=== PATIENT | male | born 1980 | race Caucasian/White ===

== ENCOUNTER 2016-07-07 11:57 | Outpatient (CLI) | payer OTHER ==
[2015-08-14 14:29] VITALS: BP 118/94
--- NOTE | 2016-07-07 16:10 | Diagnostic Imaging Report ---
[facility] [address] [facility].[address] [address] Report Submission Date: Jul 07, 2016 3:27:22 PM CDT Patient Study Name: RUY ERICKSON Date: Jul 07, 2016 12:03:47 PM CDT Modality Type: CR Gender: M Description: SPINE : 84 Institution: [facility] Physician: PRUDENCIO DELUCA Sacrum and coccyx - three views Clinical history: Fall on metal object 2 weeks ago with persistent pain and swelling. Rule out foreign body. Findings: Examination of sacrum and coccyx in AP, angled and lateral views fails to demonstrate evidence of fracture. Sacroiliac joints are symmetric. Sacral foramina are preserved. There is no lytic or blastic lesion and no opaque foreign body. Impression: 1. Negative study. Electronically signed on Jul 07, 2016 3:27:22 PM CDT by: James LU
== END 2016-07-07 12:00 ==
LOC: RAD 11:57
PROVIDERS: ATTEND Physician Assistant
DX: T14.90 Injury, unspecified (principal); W19.XXXA Unspecified fall, initial encounter; Y93.9 Activity, unspecified; Y99.9 Unspecified external cause status
CPT/HCPCS: 72220

== ENCOUNTER 2016-09-02 08:15 | Outpatient (CLI) | payer OTHER ==
[2015-08-14 14:29] VITALS: BP 118/94
[2016-09-03 11:06] LABS: ADENOVIRUS F 40/41 Not Detected (Not Detected); ASTROVIRUS Not Detected (Not Detected); C. DIFFICILE (TOXIN A/B) Not Detected (Not Detected); CRYPTOSPORIDIUM Not Detected (Not Detected); CYCLOSPORA CAYETANENSIS Not Detected (Not Detected); ENTAMOEBA HISTOLYTICA Not Detected (Not Detected); GIARDIA LAMBLIA Not Detected (Not Detected); ROTAVIRUS A Not Detected (Not Detected); SAPOVIRUS Not Detected (Not Detected); VIBRIO CHOLERAE Not Detected (Not Detected)
== END 2016-09-02 08:16 ==
LOC: LAB 08:15
PROVIDERS: ATTEND Physician Assistant
DX: A09 Infectious gastroenteritis and colitis, unspecified (principal)
CPT/HCPCS: 87507

== ENCOUNTER 2016-09-26 09:50 | Emergency (ER) | payer OTHER ==
[2016-09-26] MEDS: 0.9 % SODIUM CHLORIDE 1,000 ML IV ONE (10:30)
[2016-09-26] MEDS: ONDANSETRON HCL/PF 4 MG/ 2ML VIAL IVP ONE (10:32)
[2016-09-26 10:37] LABS: BASOPHILS % 1.2 (0.0-1.5); EOSINOPHILS % 5.3 % (0.0-6.8); MEAN CORPUSCULAR HEMOGLOBIN 33.7 pg (28.0-34.0); MEAN CORPUSCULAR VOLUME 94.8 fl (80.0-100.0); MONOCYTES % 6.2 % (0.0-11.0); NEUTROPHILS # 5.3 # k/uL (1.4-7.7)
[2016-09-26 10:56] LABS: eGFR (African) > 60; eGFR (Non-African) > 60
[2016-09-26] MEDS: ACETAMINOPHEN 325 MG TABLET PO ONE (11:22)
[2016-09-26 11:54] LABS: APPEARANCE,URINE Clear (CLEAR); COLOR,URINE Yellow (YELLOW); OCCULT BLOOD,URINE Negative (NEGATIVE); UROBILINOGEN URINE 0.2 Eu (0.2-1.0)
--- NOTE | 2016-09-26 12:54 | ED Physician Documentation ---
General Adult - HISTORIAN Historian: patient, friend - [facility] Chief Complaint: Nausea,Vomiting,Diarrhea Additional Information: nausea headache dizzy emesisx1. 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 has been occ sick ever since Onset: days ago (2-3) Timing: worse Severity: mild, moderate - ROS CONST: recent illness, weakness EYES/ENT: none CVS/RESP: cough GI/: abdominal pain, vomiting, nausea NEURO/PSYCH: headache, dizziness - PAST HX Past History: other (gerd crohns ds mental illnesws bipolar major depression ) Surgeries/Procedures: other (appy) Allergies/Adverse Reactions: Allergies Allergy/AdvReac Type Severity Reaction Status Date / Time No Known Allergies Allergy Verified 09/26/16 12:21 Home Medications: Ambulatory Orders Medication Instructions Recorded Gabapentin 600 mg PO QID u2 07/18/15 Naltrexone HCl 50 mg PO DAILY u2 07/18/15 Oxcarbazepine [Trileptal] 300 mg PO BID u2 07/18/15 Prazosin HCl 1 mg PO HS av 07/18/15 Trazodone HCl 50 mg PO HS u2 07/18/15 Promethazine HCl [Phenergan] 12.5 mg PO Q4 PRN #12 tablet 09/26/16 - SOCIAL HX Smoking History: greater than 1 pack/day Alcohol Use: none Drug Use: none - FAMILY HX Family History: No - VITAL SIGNS Vital Signs: Vital Signs Temp Pulse Resp BP Pulse Ox 118/94 01/11/16 13:56 - REVIEWED ASSESSMENTS Nursing Assessment Reviewed: Yes Vitals Reviewed: Yes ED Results Lab/Radiology - Orders Orders: ED Orders Category Date Time Status Place IV Lock 1T Care 09/26/16 10:14 Ordered CHEST P.A.&LAT 2 VIEWS [RAD] Stat Exams 09/26/16 Ordered CBC/PLATELET/DIFF Routine Lab 09/26/16 Ordered CMP Routine Lab 09/26/16 Ordered DRUG SCREEN URINE MEDICAL ONLY Routine Lab 09/26/16 Ordered URINALYSIS Routine Lab 09/26/16 Ordered NORMAL SALINE @ 1000 MLS/HR ( 1000ml BOLUS) Med 09/26/16 10:13 Ordered 0.9 % Sodium Chloride [Normal Saline] 1,000 ml IV Q1H Ondansetron HCl/Pf [Zofran 4 mg/2 ml] Med 09/26/16 10:13 Once 4 mg IVP NOW ONE General Adult Physical Exam - PHYSICAL EXAM GENERAL APPEARANCE: moderate distress EENT: eye inspection normal NECK: normal inspection, supple. No: lymphadenopathy RESPIRATORY: no resp distress, chest non-tender, breath sounds normal CVS: reg rate & rhythm, heart sounds normal ABDOMEN: soft, tenderness (slight) BACK: normal inspection SKIN: warm/dry, normal color. No: cyanosis, diaphoresis, jaundice EXTREMITIES: non-tender, normal range of motion, no edema NEURO: oriented X3, sensation nml Discharge Clincal Impression: abd headache udo-improved Prescriptions: Promethazine HCl [Phenergan] 12.5 mg PO Q4 PRN #12 tablet PRN Reason: Nausea / Vomiting Referrals: Primary Doctor,No [Primary Care Provider] - 2 Days Home Medications: Ambulatory Orders Gabapentin 600 mg PO QID u2 07/18/15 Naltrexone HCl 50 mg PO DAILY u2 07/18/15 Oxcarbazepine [Trileptal] 300 mg PO BID u2 07/18/15 Prazosin HCl 1 mg PO HS av 07/18/15 Trazodone HCl 50 mg PO HS u2 07/18/15 Promethazine HCl [Phenergan] 12.5 mg PO Q4 PRN #12 tablet 09/26/16 Condition: Good Disposition: 01 HOME, SELF-CARE Decision to Admit: NO Decision Time: 12:53
--- NOTE | 2016-09-26 16:25 | Diagnostic Imaging Report ---
[facility] [address] [facility].[address] [address] Report Submission Date: Sep 26, 2016 11:01:02 AM CDT Patient Study Name: RUY ERICKSON Date: Sep 26, 2016 10:42:53 AM CDT Modality Type: CR Gender: M Description: CHEST : 84 Institution: [facility] Physician: PATTI EDWARDS - ER Examination: PA and lateral chest. History: Evaluate lung trevizo. Findings: PA lateral chest demonstrate a normal cardiac and mediastinal silhouette. No focal infiltrate. No effusion. No blunting of the costophrenic margins. Scattered granulomas. Osseous structures are appropriate for age. Impression: No acute process. Electronically signed on Sep 26, 2016 11:01:02 AM CDT by: Rocky LU
[2016-09-26 19:56] VITALS: BP 127/77
== END 2016-09-26 13:24 | disposition home or self-care (01) ==
LOC: ED 09:50
DX: R51 Headache (principal)
CPT/HCPCS: 71020; 80053; 80377; 81002; 85025; J2405; J7030; 96361; 96374; 99283; G0481; S1016

== ENCOUNTER 2016-10-12 11:33 | Outpatient (CLI) | payer OTHER ==
--- NOTE | 2016-10-12 15:02 | Diagnostic Imaging Report ---
JENY SIMMS (SUBSEA ENGINEER) - OP [facility] [address] [address] Report Submission Date: Oct 12, 2016 12:19:02 PM CDT Patient Study Name: RUY ERICKSON Date: Oct 12, 2016 11:55:03 AM CDT Modality Type: CR Gender: M Description: SPINE : 84 Institution: [facility] Physician: JENY SIMMS (SUBSEA ENGINEER) - OP Examination: Plain film lumbar spine History: Back discomfort. Findings: 3 views of the lumbar spine demonstrate normal height. No anterior compression. No soft tissue abnormalities. Impression: No compression deformity. If patient experiencing neurologic symptoms, consider obtaining MRI. Electronically signed on Oct 12, 2016 12:19:02 PM CDT by: Rocky LU
--- NOTE | 2016-10-12 15:03 | Diagnostic Imaging Report ---
JENY SIMMS (LACE AND TEXTILES RESTORER) - OP [facility] [address] [facility].[address] [address] Report Submission Date: Oct 12, 2016 12:17:57 PM CDT Patient Study Name: RUY ERICKSON Date: Oct 12, 2016 11:49:36 AM CDT Modality Type: CR Gender: M Description: PELVIS : 84 Institution: [facility] Physician: JENY SIMMS (LACE AND TEXTILES RESTORER) - OP Examination: Plain film pelvis/hip History: Hip discomfort Comparison exams: None provided Findings: 3 views of the pelvis and hip demonstrate normal cortical margins. No fracture no dislocation. No soft tissue abnormality. Impression: No osseous abnormality. Electronically signed on Oct 12, 2016 12:17:57 PM CDT by: Rocky LU
--- NOTE | 2016-10-12 15:03 | Diagnostic Imaging Report ---
JENY SIMMS (COMMUNITY MENTAL HEALTH WORKER) - OP [facility] [address] [address] Report Submission Date: Oct 12, 2016 12:16:37 PM CDT Patient Study Name: RUY ERICKSON Date: Oct 12, 2016 11:42:59 AM CDT Modality Type: CR Gender: M Description: SHOULDER : 84 Institution: [facility] Physician: JENY SIMMS (COMMUNITY MENTAL HEALTH WORKER) - OP Examination: Plain film shoulder History: Discomfort Comparison exams: None provided Findings: 2 views of the shoulder demonstrate normal cortical margins. No evidence for fracture or dislocation. No soft tissue abnormality Impression: No acute osseous process. Suspect soft tissue abnormality consider obtaining MRI. Electronically signed on Oct 12, 2016 12:16:37 PM CDT by: Rocky LU
== END 2016-10-12 11:34 ==
LOC: RAD 11:33
PROVIDERS: ATTEND Nurse Practitioner Family
DX: M54.5 Low back pain (principal); M25.552 Pain in left hip; M25.512 Pain in left shoulder
CPT/HCPCS: 72100; 73030

== ENCOUNTER 2016-10-28 21:19 | Emergency (ER) | payer OTHER ==
[2016-10-28 21:43] VITALS: BP 115/72
--- NOTE | 2016-10-28 21:52 | ED Physician Documentation ---
Upper Extremity Injury - HISTORIAN Historian: patient - HPI Stated Complaint: right elbow pain Chief Complaint: Upper Extremity Injury Additional Information: Slipped on wet shower, hit elbow on shower floor. Onset: just prior to arrival - ROS CONST: no problems - PAST HX Past History: none Allergies/Adverse Reactions: Allergies Allergy/AdvReac Type Severity Reaction Status Date / Time No Known Allergies Allergy Verified 10/28/16 21:32 Home Medications: Ambulatory Orders Medication Instructions Recorded Gabapentin 600 mg PO QID 07/18/15 Naltrexone HCl 50 mg PO DAILY 07/18/15 Oxcarbazepine [Trileptal] 300 mg PO BID u2 07/18/15 Prazosin HCl 1 mg PO HS 07/18/15 Trazodone HCl 50 mg PO HS 07/18/15 - SOCIAL HX Smoking History: non-smoker - FAMILY HX Family History: no significant history - VITAL SIGNS Vital Signs: Vital Signs Temp Pulse Resp BP Pulse Ox 97.6 F 85 16 115/72 95 10/28/16 21:20 10/28/16 21:20 10/28/16 21:20 10/28/16 21:20 10/28/16 21:20 - REVIEWED ASSESSMENTS Nursing Assessment Reviewed: Yes Vitals Reviewed: Yes ED Results Lab/Radiology - Orders Orders: ED Orders Category Date Time Status ELBOW 3 VIEWS [RAD] Stat Exams 10/28/16 Taken Upper Extremity Injury Physic - Physical Exam General Appearance: alert, mild distress Hand: normal inspection, no evidence of injury, normal ROM Wrist: normal inspection, no evidence of injury, normal ROM Elbow/Forearm: soft tissue tenderness (superficial abrasions) Shoulder: normal inspection, no evidence of injury, normal ROM Neuro/Vascular/Tendon: no vascular compromise (right radial pulse 2+), motor nml , sensation nml Skin: warm,dry Head/ENT: nml inspection Neck/Back: nml inspection Resp/CVS: no resp. distress Abdomen: pelvis stable Discharge Clincal Impression: Contusion of right elbow Referrals: Jahaira Elizabeth PRN [Primary Care Provider] - 2 Days Additional Instructions: Ice to the sore area for 30 minutes of each hour you are awake for 3-4 days. You can also take Tylenol or ibuprofen if needed for discomfort. Home Medications: Ambulatory Orders Gabapentin 600 mg PO QID 07/18/15 Naltrexone HCl 50 mg PO DAILY 07/18/15 Oxcarbazepine [Trileptal] 300 mg PO BID u2 07/18/15 Prazosin HCl 1 mg PO HS av 07/18/15 Trazodone HCl 50 mg PO HS u2 07/18/15 Condition: Good Disposition: 01 HOME, SELF-CARE Decision to Admit: NO Decision Time: 21:57
--- NOTE | 2016-10-28 21:58 | Diagnostic Imaging Report ---
NUNO WILHELM [facility] [address] [facility] [address] [address] Report Submission Date: Oct 28, 2016 9:48:18 PM CDT Patient Study Name: RUY ERICKSON Date: Oct 28, 2016 9:31:41 PM CDT Modality Type: CR Gender: M Description: UPPER EXTREMITY : 84 Institution: [facility] Physician: NUNO WILHELM Left elbow, AP and lateral History: Fall, injury, pain Findings: The osseous, joint and soft tissue structures are normal. Impression: Normal. Electronically signed on Oct 28, 2016 9:48:18 PM CDT by: Tim LU
== END 2016-10-28 21:55 | disposition home or self-care (01) ==
LOC: ED 21:19
DX: S50.01XA Contusion of right elbow, initial encounter (principal); X58.XXXA Exposure to other specified factors, initial encounter; Y93.9 Activity, unspecified; Y99.9 Unspecified external cause status
CPT/HCPCS: 73080; 99283

== ENCOUNTER 2017-01-12 11:19 | Emergency (ER) | payer OTHER ==
--- NOTE | 2017-01-12 11:51 | ED Physician Documentation ---
General Adult - HISTORIAN Historian: patient - HPI Stated Complaint: food in throat Chief Complaint: General Adult Further Comments: yes (36 year old male patient presents with complaints of sore throat and mouth pain. States he was recently seen in the ER last week for "steak caught in my throat".) - ROS CONST: no problems EYES/ENT: none CVS/RESP: none GI/: none MS/SKIN/LYMPH: none NEURO/PSYCH: denies: headache - PAST HX Past History: other (bipolar) Allergies/Adverse Reactions: Allergies Allergy/AdvReac Type Severity Reaction Status Date / Time No Known Allergies Allergy Verified 01/12/17 11:36 Home Medications: Ambulatory Orders Medication Instructions Recorded Gabapentin 600 mg PO QID u2 07/18/15 Naltrexone HCl 50 mg PO DAILY u2 07/18/15 Oxcarbazepine [Trileptal] 300 mg PO BID u2 07/18/15 Prazosin HCl 1 mg PO HS av 07/18/15 Trazodone HCl 50 mg PO HS u2 07/18/15 Nystatin 500,000 Unit/5 ml Udc 5 ml PO QID #150 ml 01/12/17 [Nilstat] - SOCIAL HX Smoking History: cigarettes - FAMILY HX Family History: No - VITAL SIGNS Vital Signs: Vital Signs Temp Pulse Resp BP Pulse Ox 98.5 F 75 16 136/82 97 01/12/17 11:20 01/12/17 11:20 01/12/17 11:20 01/12/17 11:20 01/12/17 11:20 - REVIEWED ASSESSMENTS Nursing Assessment Reviewed: Yes Vitals Reviewed: Yes General Adult Physical Exam - PHYSICAL EXAM GENERAL APPEARANCE: [id number] N EENT: eye inspection normal, DENISSE, other (white coating on mouth and tongue). No: pharyngeal erythema RESPIRATORY: no resp distress, chest non-tender, breath sounds normal CVS: reg rate & rhythm, heart sounds normal, equal pulses, no murmur, no gallop , PMI nml, no JVD, no friction rub, 24 ABDOMEN: soft, no organomegaly, normal bowel sounds, no abdominal bruit, no distension SKIN: normal color, warm/dry, NR, INT, PAL, DR NEURO: oriented X3, CN's nml as tested, motor nml, sensation nml, mood/affect nml Discharge Clincal Impression: Candidiasis of mouth Prescriptions: Nystatin 500,000 Unit/5 ml Udc [Nilstat] 5 ml PO QID #150 ml Referrals: Jahaira Elizabeth, PRN [Primary Care Provider] - 2 Days Condition: Stable Disposition: 01 HOME, SELF-CARE Decision to Admit: NO Decision Time: 11:51
[2017-01-12 12:07] VITALS: BP 136/78
== END 2017-01-12 12:00 | disposition home or self-care (01) ==
LOC: ED 11:19
DX: B37.0 Candidal stomatitis (principal)
CPT/HCPCS: 99283

== ENCOUNTER 2017-04-09 08:35 | Emergency (ER) | payer OTHER ==
[2017-04-09 09:24] VITALS: BP 142/77
--- NOTE | 2017-04-09 09:24 | ED Physician Documentation ---
Upper Respiratory Symptoms - HISTORIAN Historian: patient, parent - HPI Stated Complaint: cough, fever Chief Complaint: Upper Respiratory Symptoms Additional Information: cough cold off and on since -still smokes 2 pld. occ lo gr fever no flu vacc b/k=ok e/s ok xc cough-needs work excuse' Duration: intermittent episodes Context: denies: recent foreign travel, insect bite(s) Severity: mild, moderate Associated Symptoms: denies: productive cough, shortness of breath Worsened by Deep Breath: Yes - ROS CONST/EYES: weakness (mild ) LYMPH: denies: rash, swollen glands GI/: none NEURO/PSYCH: other (bipolar) MS/SKIN: denies: joint pain, muscle aches, rash - PAST HX Lung Disease: none (no spec dx but smokes 2ppd) PE Risk Factors: none Surgeries/Procedures: appendectomy Immunizations: denies: influenza, UTD Allergies/Adverse Reactions: Allergies Allergy/AdvReac Type Severity Reaction Status Date / Time No Known Allergies Allergy Verified 04/09/17 08:52 Home Medications: Ambulatory Orders Medication Instructions Recorded Gabapentin 600 mg PO QID 07/18/15 Naltrexone HCl 50 mg PO DAILY 07/18/15 Oxcarbazepine [Trileptal] 300 mg PO BID 07/18/15 Prazosin HCl 1 mg PO HS 07/18/15 Trazodone HCl 50 mg PO HS 07/18/15 - SOCIAL HX Smoking History: greater than 1 pack/day Alcohol Use: none Drug Use: none - FAMILY HX Family History: no significant history - VITAL SIGNS Vital Signs: Vital Signs Temp Pulse Resp BP Pulse Ox 98.0 F 67 19 143/100 97 04/09/17 08:54 04/09/17 08:54 04/09/17 08:54 04/09/17 08:54 04/09/17 08:54 - REVIEWED ASSESSMENTS Nursing Assessment Reviewed: Yes ED Results Lab/Radiology - Lab Results Lab Results: flu titers neg Upper Respiratory Symptoms - EXAM General Appearance: mild distress EENT: eyes nml inspection. No: loss of TM landmarks (R), loss of TM landmarks ( L), pharyngeal erythema Neck: normal inspection. No: lymphadenopathy, carotid bruit Respiratory: speaks full sentences, wheezes, no pleuritic chest pain. No: resp. fatigue Abdomen: non-tender CVS: reg rate & rhythm, heart sounds normal Skin: color nml, no rash, warm,dry. No: cyanosis, diaphoresis, pallor Extremities: non-tender, normal range of motion Neuro/Psych: oriented x3 Discharge Clincal Impression: viral resp infection, nicotine abuse Referrals: Jahaira Elizabeth PRN [Primary Care Provider] - 2 Days Comments: wants work excuse Condition: Good Disposition: 01 HOME, SELF-CARE Decision to Admit: NO Decision Time: 09:29
== END 2017-04-09 09:23 | disposition home or self-care (01) ==
LOC: ED 08:35
DX: B34.9 Viral infection, unspecified (principal); F17.210 Nicotine dependence, cigarettes, uncomplicated
CPT/HCPCS: 87400; 99282

== ENCOUNTER 2017-07-15 10:29 | Emergency (ER) | payer OTHER ==
[2017-07-15 10:52] VITALS: BP 147/92
--- NOTE | 2017-07-15 11:03 | ED Physician Documentation ---
Upper Respiratory Symptoms - HISTORIAN Historian: patient - HPI Stated Complaint: cough, runny nose Chief Complaint: Cough/ Upper Respiratory Additional Information: x 1 week Onset: days ago (7) Duration: sudden-Onset Context: denies: recent foreign travel, insect bite(s), tick(s), recent chemotherapy, multiple patients, same sx Severity: moderate Associated Symptoms: fever, sore throat, productive cough Worsened by Deep Breath: Yes - ROS CONST/EYES: denies: weakness, eye redness, eye itching CVS/RESP: other (green prod. cough) LYMPH: denies: leg swelling, rash, swollen glands, ankle swelling GI/: none NEURO/PSYCH: denies: fainting, dizziness, confusion, anxiety, depression MS/SKIN: denies: joint pain, muscle aches, rash - PAST HX Lung Disease: asthma, COPD Other History: other (gerd, ibs) Surgeries/Procedures: appendectomy Immunizations: referred to PCP Allergies/Adverse Reactions: Allergies Allergy/AdvReac Type Severity Reaction Status Date / Time No Known Allergies Allergy Verified 07/15/17 10:40 Home Medications: Ambulatory Orders Medication Instructions Recorded Gabapentin 600 mg PO QID u2 07/18/15 Trazodone HCl 50 mg PO HS u2 07/18/15 Dexlansoprazole [Dexilant] 60 mg PO DAILY 07/15/17 Dicyclomine HCl [Bentyl] 20 mg PO Q6 PRN 07/15/17 Montelukast Sodium [Singulair] 10 mg PO DAILY 07/15/17 Omeprazole [Prilosec] 40 mg PO TID 07/15/17 Ranitidine HCl [Ranitidine HCl] 150 mg PO BID 07/15/17 - SOCIAL HX Smoking History: cigarettes Alcohol Use: occasionally Drug Use: none - FAMILY HX Family History: no significant history - VITAL SIGNS Vital Signs: Vital Signs Temp Pulse Resp BP Pulse Ox 98.6 F 68 18 147/92 98 07/15/17 10:45 07/15/17 10:45 07/15/17 10:45 07/15/17 10:45 07/15/17 10:45 - REVIEWED ASSESSMENTS Nursing Assessment Reviewed: Yes Vitals Reviewed: Yes Progress - Results/Orders Results/Orders: no testing ordered - Progress Progress: Pt. stable entire time in er Critical Care Note - Critical Care Note Total Time (mins): 0 ED Results Lab/Radiology - Lab Results Lab Results: none ordered - Radiology Radiology Impressions: none taken Upper Respiratory Symptoms - EXAM General Appearance: alert, mild distress EENT: eyes nml inspection, TM dullness (R), TM dullness (L), rhinorrhea, pharyngeal erythema, other (tenderness over frontal, ethmoid and maxillary sinuses) Neck: normal inspection, thyroid normal, supple Respiratory: no resp. distress, breath sounds nml. No: wheezes, rales, rhonchi , stridor Abdomen: non-tender, no organomegaly, nml bowel sounds CVS: reg rate & rhythm, heart sounds normal, equal pulses, no murmur Skin: color nml, no rash, warm,dry Extremities: non-tender, normal range of motion, no evidence of injury, no edema Neuro/Psych: oriented x3, neuro intact, mood/affect nml Discharge Clincal Impression: Upper respiratory tract infection Qualifiers: URI type: unspecified URI Qualified Code(s): J06.9 - Acute upper respiratory infection, unspecified Referrals: Jahaira Elizabeth, PRN [Primary Care Provider] - 2 Days Comments: Discharged in stable condition to care of family with script for Keflex 500 mg 2 p.o. bid x 10 days. Condition: Stable Disposition: 01 HOME, SELF-CARE Decision to Admit: NO Decision Time: 11:03
== END 2017-07-15 11:07 | disposition home or self-care (01) ==
LOC: ED 10:29
DX: J06.9 Acute upper respiratory infection, unspecified (principal)
CPT/HCPCS: 99282

== ENCOUNTER 2017-12-26 13:13 | Emergency (ER) | payer OTHER ==
[2017-12-26] MEDS ORDERED: 0.9 % SODIUM CHLORIDE 1,000 ML IV ONE (13:37)
[2017-12-26] MEDS ORDERED: ONDANSETRON HCL/PF 4 MG/ 2ML VIAL IVP ONE (13:38)
[2017-12-26 14:29] LABS: eGFR (Non-African) > 60
--- NOTE | 2017-12-26 14:38 | ED Physician Documentation ---
General Adult - HISTORIAN Historian: patient - HPI Stated Complaint: Abd pain Chief Complaint: General Adult Onset: hours Timing: still present Severity: moderate Further Comments: yes (Pt is a 37 yo male with hx IBS who has had loose and watery stools and lower abd pain x 1 day. Pt has had some nausea but no vomiting. Pt has hx appendectomy with complication and exploratory open abd surgery when he was a teenager. Pt also has hx diverticulitis. No uti sx. No hematuria.) - ROS CONST: no problems EYES/ENT: none CVS/RESP: none GI/: abdominal pain MS/SKIN/LYMPH: none - PAST HX Past History: other (GERD, Appendectomy with complications and exploratory abd surgery as teenager, IBS, Diverticulitis.) Allergies/Adverse Reactions: Allergies Allergy/AdvReac Type Severity Reaction Status Date / Time No Known Allergies Allergy Verified 12/26/17 13:44 Home Medications: Ambulatory Orders Medication Instructions Recorded Gabapentin 600 mg PO QID u2 07/18/15 Trazodone HCl 50 mg PO HS u2 07/18/15 Dicyclomine HCl [Bentyl] 20 mg PO Q6 PRN 07/15/17 Montelukast Sodium [Singulair] 10 mg PO DAILY 07/15/17 Omeprazole [Prilosec] 40 mg PO TID 07/15/17 - SOCIAL HX Smoking History: cigarettes Drug Use: marijuana - FAMILY HX Family History: No - VITAL SIGNS Vital Signs: Vital Signs Temp Pulse Resp BP Pulse Ox 98.5 F 70 21 132/91 98 12/26/17 13:33 12/26/17 13:33 12/26/17 13:33 12/26/17 13:33 12/26/17 13:33 - REVIEWED ASSESSMENTS Nursing Assessment Reviewed: Yes Vitals Reviewed: Yes Progress - Progress Progress: NS 1 L IVF Zofran 4 mg IV Abd x-ray: 2 views obtained of the abdomen. No abnormal dilation of the large or small bowel. Air and stool throughout the large bowel. No suspicious calcification projecting over the renal fossa or the lower pelvic region. Osseous structures are appropriate for age. Impression: No obstruction. No suspicious calcifications by plain film sensitivity. u/a - neg possible early diverticulitis (hx diverticulitis) Rx Cipro 500 mg po q 12 h x 7 10 days. Rx Metronidazole 500 mg q 8 h x 7 -10 days. ED Results Lab/Radiology - Lab Results Lab Results: Lab Results 12/26/17 12/26/17 13:48 13:48 Sodium 135 mmol/L L mmol/L (136-145) Potassium 3.9 mmol/L mmol/L (3.5-5.1) Chloride 103 mmol/L mmol/L (98-107) Carbon Dioxide 24 mmol/L mmol/L (22-30) BUN 10 mg/dL mg/dL (9-20) Creatinine 0.70 mg/dL mg/dL (0.66-1.25) Estimated Creat Clear 193 Est GFR ( Amer) > 60 (60 - ) Est GFR (Non-Af Amer) > 60 (60 - ) Glucose 89 mg/dL mg/dL (74-106) Calcium 8.7 mg/dL mg/dL (8.4-10.2) Total Bilirubin 0.4 mg/dL mg/dL (0.2-1.3) AST 17 U/L U/L (15-46) ALT 24 U/L U/L (13-69) Alkaline Phosphatase 76 U/L U/L (38-126) Total Protein 7.0 g/dL g/dL (6.3-8.2) Albumin 4.1 g/dL g/dL (3.5-5.0) Lipase 23 U/L U/L (23-300) - Orders Orders: ED Orders Category Date Time Status Place IV Lock 1T Care 12/26/17 13:36 Active ABDOMEN 1VIEW [RAD] Stat Exams 12/26/17 Taken CBC REF Routine Lab 12/26/17 13:48 Received CMP [CMP] Routine Lab 12/26/17 13:48 Completed LIPASE Stat Lab 12/26/17 13:48 Completed UA [URINALYSIS] Routine Lab 12/26/17 13:48 Received 0.9 % Sodium Chloride [Normal Saline] 1,000 ml Med 12/26/17 13:37 Discontinued IV Q1H Ondansetron HCl/Pf [Zofran 4 mg/2 ml] Med 12/26/17 13:38 Discontinued 4 mg IVP NOW ONE General Adult Physical Exam - PHYSICAL EXAM GENERAL APPEARANCE: moderate distress EENT: pharynx normal NECK: normal inspection, supple RESPIRATORY: no resp distress, chest non-tender, breath sounds normal CVS: reg rate & rhythm, heart sounds normal, equal pulses ABDOMEN: soft, normal bowel sounds, tenderness (lower abd tenderness) BACK: normal inspection, no CVA tenderness SKIN: warm/dry, normal color EXTREMITIES: non-tender, normal range of motion, no evidence of injury NEURO: oriented X3, motor nml, sensation nml Discharge Clincal Impression: lower abd pain, Hx of diverticulitis of colon, Hx of irritable bowel syndrome Referrals: Jahaira Elizabeth, PRN [Primary Care Provider] - Condition: Stable Disposition: 01 HOME, SELF-CARE Decision to Admit: NO Decision Time: 15:43
[2017-12-26 15:31] LABS: BASO % 0.8 % (0.0-1.5); EOS % 3.3 % (0.0-6.8); LYMPH ABS # 1.91 thou/uL (0.60-4.00); MCH. 32.8 pg (28.0-34.0); MCV 95.2 fL (80.0-100.0); MONOCYTE % 7.9 % (0.0-11.0); MONOCYTE ABS # 0.68 thou/uL (0.00-0.90); PLATELET COUNT 272 thou/uL (130-400)
[2017-12-26 16:22] VITALS: BP 122/74
--- NOTE | 2017-12-26 16:45 | Diagnostic Imaging Report ---
NATHAN CHAVES [facility] [address] [facility] [address] [address] Report Submission Date: Dec 26, 2017 2:30:05 PM CDT Patient Study Name: RUY ERICKSON Date: Dec 26, 2017 2:00:00 PM CDT Modality Type: DX Gender: M Description: ABDOMEN : 84 Institution: [facility] Physician: NATHAN CHAVES Examination: Obstruction series History: PT STATES STOMACH PAIN X 1 DAY. PT STATES APPENDIX REMOVED X 20 YEARS AGO. (Hx) Findings: 2 views obtained of the abdomen. No abnormal dilation of the large or small bowel. Air and stool throughout the large bowel. No suspicious calcification projecting over the renal fossa or the lower pelvic region. Osseous structures are appropriate for age. Impression: No obstruction. No suspicious calcifications by plain film sensitivity. Electronically signed on Dec 26, 2017 2:30:05 PM CDT by: Rocky LU
[2017-12-26 17:34] LABS: APPEARANCE,URINE CLEAR (CLEAR); COLOR,URINE YELLOW (YELLOW); OCCULT BLOOD,URINE NEGATIVE (NEGATIVE); UROBILINOGEN URINE 0.2 Eu (0.2-1.0)
== END 2017-12-26 15:59 | disposition home or self-care (01) ==
LOC: ED 13:13
DX: R10.30 Lower abdominal pain, unspecified (principal); Z87.19 Personal history of other diseases of the digestive system
CPT/HCPCS: 74018; 80053; 81002; 83690; 85025; J2405; J7030; 96365; 96375; 99284; S1016

== ENCOUNTER 2018-04-11 06:48 | Emergency (ER) | payer OTHER ==
[2018-04-11 07:07] VITALS: BP 165/105
--- NOTE | 2018-04-11 07:36 | ED Physician Documentation ---
Fall - HISTORIAN Historian: patient, spouse - HPI Stated Complaint: R wrist/hand pain Chief Complaint: Upper Extremity Injury Additional Information: fell on ice yest am w/pain in rt wrist hand-pain progressive Onset: yesterday Where: home Context: slipped r: moderate Associated Symptoms:: no loss of consciousness Location of Pain/Injury: upper extremity Injury to Right Extremity: wrist, hand Injury to Left Extremity: none - ROS CONST: no problems NEURO: denies: dizziness, anxiety, depression MS/SKIN/LYMPH: weakness. denies: numbness, neck pain, back pain EYES/ENT: denies: problems with vision CVS/RESP: none GI/: denies: problems urinating, nausea, vomiting - PAST HX Past History: other (anxiety depression gerd) Allergies/Adverse Reactions: Allergies Allergy/AdvReac Type Severity Reaction Status Date / Time No Known Drug Allergies Allergy Verified 04/11/18 07:07 Home Medications: Ambulatory Orders Medication Instructions Recorded Gabapentin 600 mg PO QID u2 07/18/15 Omeprazole [Prilosec] 40 mg PO TID 07/15/17 Amitriptyline HCl [Elavil] 1 tab PO DAILY 04/11/18 - SOCIAL HX Smoking History: cigarettes Alcohol Use: rarely Drug Use: none - FAMILY HX Family History: no significant history - VITAL SIGNS Vital Signs: Vital Signs Temp Pulse Resp BP Pulse Ox 74 16 165/105 98 04/11/18 06:55 04/11/18 06:55 04/11/18 06:55 04/11/18 06:55 - REVIEWED ASSESSMENTS Nursing Assessment Reviewed: Yes Vitals Reviewed: Yes ED Results Lab/Radiology - Orders Orders: ED Orders Category Date Time Status XR HAND [HAND 3 VIEWS OR MORE] [RAD] Stat Exams 04/11/18 Taken Fall Physical Exam - Physical Exam General Appearance: mild distress Head: non-tender Neck: non-tender Eye: DENISSE, EOMI ENT: nml external inspection Resp/CVS: chest non-tender, breath sounds nml, no resp. distress, heart sounds nml Abdomen: soft, non-tender, other (surgical hernia) Neuro: oriented x3, sensation nml, motor nml, mood/affect nml Skin: color nml, no rash, other (cap refill less 1 sec). No: cyanosis, diaphoresis, pallor Back: normal inspection Joint: Nml gait/weight bearing - Zach Coma Score Eyes Open: Spontaneous Speech: Oriented Motor: Obeys Commands Discharge Clincal Impression: sprain contusion, old healed boxer fracture Referrals: Jahaira Elizabeth PRN [Primary Care Provider] - 2 Days Condition: Good Disposition: 01 HOME, SELF-CARE Decision to Admit: NO Decision Time: 10:16
--- NOTE | 2018-04-11 10:04 | Diagnostic Imaging Report ---
PATTI EDWARDS [facility] [address] [facility] [address] 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 Physician: PATTI EDWARDS Examination: Plain film right hand History: RT HAND AND THUMB PAIN POST FALL ON ICE TODAY. (Hx) Comparison exams: None available Findings: 3 views of the right hand demonstrate normal cortical margins. Old fracture deformity of 5th metacarpal. No acute fracture. No dislocation. No soft tissue abnormality. Impression: Old/healed 5th metacarpal fracture. 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
== END 2018-04-11 08:20 | disposition home or self-care (01) ==
LOC: ED 06:48
DX: S63.501A Unspecified sprain of right wrist, initial encounter (principal); S60.211A Contusion of right wrist, initial encounter; W00.9XXA Unspecified fall due to ice and snow, initial encounter; Y93.9 Activity, unspecified; Y92.009 Unspecified place in unspecified non-institutional (private) residence as the place of occurrence of the external cause
CPT/HCPCS: 29125; 73130; 99282; 99283

== ENCOUNTER 2018-06-21 09:03 | Emergency (ER) | payer OTHER ==
[2018-06-21 09:40] LABS: BASOPHILS % 2.8 (0.0-1.5); EOSINOPHILS % 2.6 % (0.0-6.8); MONOCYTES % 7.1 % (0.0-11.0); NEUTROPHILS # 6.8 # k/uL (1.4-7.7)
[2018-06-21] MEDS: IPRATROPIUM/ALBUTEROL SULFATE 3 ML AMPUL.NEB NEB ONE (09:41)
--- NOTE | 2018-06-21 09:52 | ED Physician Documentation ---
Upper Respiratory Symptoms - HISTORIAN Historian: patient - HPI Stated Complaint: cough/congestion/syncope Chief Complaint: Cough/ Upper Respiratory Additional Information: Patient presents to ED with a 2 year history of cough. Patient reports worsening cough over the past 2 months. His main concern is he thinks he is having seizures after he has a coughing fit. Patient reports on 2 occasions he has coughed so hard he saw spots and then had some jerking motions with he arms. He remembers the entire episodes and did not have loss of bowel or bladder, nor did he have any post-ictal type symptoms. He was told by his PCP to come to the ER and be checked out. Onset: other (2 years) Duration: intermittent episodes Context: other (smokes 2 packs of cigarettes per day) Severity: moderate Associated Symptoms: productive cough, shortness of breath Worsened by Deep Breath: No Further Comments: no - ROS CONST/EYES: denies: weakness CVS/RESP: shortness of breath. denies: chest pain LYMPH: denies: leg swelling GI/: denies: vomiting, nausea NEURO/PSYCH: dizziness. denies: fainting MS/SKIN: denies: muscle aches - PAST HX Lung Disease: COPD PE Risk Factors: none Other History: other (psych) Surgeries/Procedures: none Allergies/Adverse Reactions: Allergies Allergy/AdvReac Type Severity Reaction Status Date / Time No Known Drug Allergies Allergy Verified 06/21/18 09:20 Home Medications: Ambulatory Orders Medication Instructions Recorded Gabapentin 600 mg PO QID u2 07/18/15 Omeprazole [Prilosec] 40 mg PO TID 07/15/17 Amitriptyline HCl [Elavil] 1 tab PO DAILY 04/11/18 Azithromycin 250 mg PO DIRECTED #5 tablet 06/21/18 predniSONE [Deltasone] 10 mg PO DIRECTED #21 tablet 06/21/18 - SOCIAL HX Smoking History: cigarettes, greater than 1 pack/day Alcohol Use: none Drug Use: none - FAMILY HX Family History: none - VITAL SIGNS Vital Signs: Vital Signs Temp Pulse Resp BP Pulse Ox 71 20 155/86 99 06/21/18 09:04 06/21/18 09:04 06/21/18 09:04 06/21/18 09:04 - REVIEWED ASSESSMENTS Nursing Assessment Reviewed: Yes Vitals Reviewed: Yes ED Results Lab/Radiology - Lab Results Lab Results: Lab Results 06/21/18 06/21/18 Unknown Unknown WBC 10.50 K/ul K/ul (4.00-12.00) RBC 4.85 M/ul M/ul (3.90-5.20) Hgb 16.0 g/dL g/dL (12.0-18.0) Hct 48.4 % % (37.0-53.0) MCV 100.0 fl fl (80.0-100.0) MCH 33.0 pg pg (28.0-34.0) MCHC 33.1 g/dL g/dL (30.0-36.0) RDW 12.2 % % (11.3-14.3) Plt Count 249 K/mm3 K/mm3 (130-400) Neut % (Auto) 65.1 % % (39.0-79.0) Lymph % (Auto) 22.4 % % (16.0-50.0) [place] % (Auto) 7.1 % % (0.0-11.0) Eos % (Auto) 2.6 % % (0.0-6.8) Baso % (Auto) 2.8 H (0.0-1.5) Neut # (Auto) 6.8 # k/uL # k/uL (1.4-7.7) Lymph # (Auto) 2.3 # k/uL # k/uL (0.6-4.0) [place] # (Auto) 0.7 # k/uL # k/uL (0.0-0.9) Eos # (Auto) 0.3 # k/uL # k/uL (0.0-0.6) Baso # (Auto) 0.3 # k/uL # k/uL (0.0-0.5) Sodium 138 mmol/L mmol/L (136-145) Potassium 3.6 mmol/L mmol/L (3.5-5.1) Chloride 105 mmol/L mmol/L (98-107) Carbon Dioxide 21 mmol/L L mmol/L (22-30) BUN 11 mg/dL mg/dL (9-20) Creatinine 0.70 mg/dL mg/dL (0.66-1.25) Estimated Creat Clear 232 Est GFR ( Amer) > 60 (60 - ) Est GFR (Non-Af Amer) > 60 (60 - ) Glucose 128 mg/dL H mg/dL (74-106) Calcium 9.2 mg/dL mg/dL (8.4-10.2) Total Bilirubin 0.5 mg/dL mg/dL (0.2-1.3) AST 31 U/L U/L (15-46) ALT 10 U/L L U/L (13-69) Alkaline Phosphatase 74 U/L U/L (38-126) Total Protein 7.7 g/dL g/dL (6.3-8.2) Albumin 4.2 g/dL g/dL (3.5-5.0) - Radiology Radiology Impressions: Report Submission Date: Jun 21, 2018 10:21:50 AM CDT Patient Study Name: RUY ERICKSON Date: Jun 21, 2018 9:31:12 AM CDT Modality Type: DX Gender: M Description: CHEST 2VIEW : 84 Institution: [facility] Physician: AMIRAH AGUILAR Examination: PA and lateral chest. History: Evaluate lung trevizo. Comparison exam: 03 January 2017 Findings: PA and lateral views of the chest demonstrates a normal cardiac and mediastinal silhouette. No focal infiltrate. No blunting of the costophrenic margins. Scattered stable granuloma. Osseous structures are appropriate for age. Impression: No acute pulmonary process. Electronically signed on Jun 21, 2018 10:21:50 AM CDT by: Rocky Up - Orders Orders: ED Orders Category Date Time Status CHEST 2VIEW [RAD] Stat Exams 06/21/18 Ordered CBC/PLATELET/DIFF Routine Lab 06/21/18 Completed CMP Routine Lab 06/21/18 Completed INFLUENZA A&B Stat Lab 06/21/18 09:33 Ordered Ipratropium/Albuterol Sulfate [Duoneb] Med 06/21/18 09:22 Discontinued 3 ml NEB NOW ONE Upper Respiratory Symptoms - EXAM General Appearance: no acute distress, alert, other (speech stutter) EENT: eyes nml inspection, nml ENT inspection. No: pharyngeal erythema Neck: normal inspection, supple. No: lymphadenopathy Respiratory: no resp. distress, breath sounds nml, speaks full sentences, other Abdomen: non-tender, nml bowel sounds, no distention. No: tenderness CVS: reg rate & rhythm, heart sounds normal Skin: color nml, no rash, warm,dry Extremities: non-tender, no edema Neuro/Psych: oriented x3, neuro intact, mood/affect nml Discharge Clincal Impression: Acute exacerbation of chronic obstructive pulmonary disease (COPD) Prescriptions: Azithromycin 250 mg PO DIRECTED #5 tablet predniSONE [Deltasone] 10 mg PO DIRECTED #21 tablet Referrals: Jahaira Elizabeth, PRN [Primary Care Provider] - 2 Days Additional Instructions: 1. Take antibiotics until gone 2. Take Prednisone until gone 3. Stop Smoking 4. Add daily Zyrtec, Claritin, Danisha or Xyzal. Do not use the "D" formulation. This has a decongestant which you do not need. 5. Follow up with PCP within 1 week 6. Return to ED with new or worsening symptoms. Condition: Stable Disposition: 01 HOME, SELF-CARE Decision to Admit: NO Date of Decison to Admit: 06/21/18 Decision Time: 10:07
[2018-06-21 09:59] LABS: eGFR (Non-African) > 60
[2018-06-21 10:39] VITALS: BP 111/77
--- NOTE | 2018-06-21 20:30 | Diagnostic Imaging Report ---
AMIRAH AGUILAR [facility] [address] [facility] [address] [place], [place]. [address] Report Submission Date: Jun 21, 2018 10:21:50 AM CDT Patient Study Name: RUY ERICKSON Date: Jun 21, 2018 9:31:12 AM CDT Modality Type: DX Gender: M Description: CHEST 2VIEW : 84 Institution: [facility] Physician: AMIRAH AGUILAR Examination: PA and lateral chest. History: Evaluate lung trevizo. Comparison exam: 03 January 2017 Findings: PA and lateral views of the chest demonstrates a normal cardiac and mediastinal silhouette. No focal infiltrate. No blunting of the costophrenic margins. Scattered stable granuloma. Osseous structures are appropriate for age. Impression: No acute pulmonary process. Electronically signed on Jun 21, 2018 10:21:50 AM CDT by: Rocky LU
== END 2018-06-21 10:27 | disposition home or self-care (01) ==
LOC: ED 09:03
DX: J44.1 Chronic obstructive pulmonary disease with (acute) exacerbation (principal); Z72.0 Tobacco use
CPT/HCPCS: 36415; 71046; 80053; 85025; 87400; 94640; 99283; 99284

== ENCOUNTER 2019-03-03 08:27 | Emergency (ER) | payer SELFPAY ==
[2019-03-03] MEDS ORDERED: IPRATROPIUM/ALBUTEROL SULFATE 3 ML AMPUL.NEB NEB ONE ×2 (08:44→09:54)
[2019-03-03] MEDS ORDERED: methylPREDNISolone SOD SUCC 125 MG/2 ML VIAL IM ONE (08:44)
--- NOTE | 2019-03-03 08:45 | ED Physician Documentation ---
Upper Respiratory Symptoms - HISTORIAN Historian: patient - HPI Stated Complaint: cough Chief Complaint: Cough/ Upper Respiratory Additional Information: Patient presents to ED with a 2 month history of cough (dry), sore throat and some nasal congestion. Patient reports coughing so hard he nearly passes out. He has similar symptoms in May 2018 and was treated for COPD exacerbation. Patient reports his treatment in May resolved his symptoms. Patient has been out of Losartan for past 6 months due to loss of insurance. Patient denies fever, chills, night sweat, nausea/vomiting, syncope or chest pain. Onset: days ago (62) Duration: intermittent episodes Context: denies: recent foreign travel Severity: moderate Associated Symptoms: runny nose, sore throat. denies: fever, chills, chest pain, shortness of breath, hurts to breathe - ROS CONST/EYES: denies: weakness CVS/RESP: denies: chest pain, shortness of breath LYMPH: denies: rash, ankle swelling GI/: denies: vomiting, nausea NEURO/PSYCH: denies: fainting MS/SKIN: denies: muscle aches - PAST HX Lung Disease: COPD, bronchitis PE Risk Factors: hypertension Other History: hypertension, other (psych) Surgeries/Procedures: appendectomy Allergies/Adverse Reactions: Allergies Allergy/AdvReac Type Severity Reaction Status Date / Time No Known Drug Allergies Allergy Verified 03/03/19 08:46 Home Medications: Ambulatory Orders Medication Instructions Recorded Gabapentin 600 mg PO QID u2 07/18/15 Amoxicillin/Potassium Clav 1 each PO Q12 #14 tablet 03/03/19 [Augmentin 875-125 Tablet] Buspirone HCl [Buspar] 15 mg PO BID 03/03/19 Losartan Potassium [Cozaar] 25 mg PO DAILY #30 tab 03/03/19 Methylprednisolone [Medrol] 4 mg PO DIRECTED #1 tab.ds.pk 03/03/19 Oxcarbazepine [Trileptal] 1 tab PO DAILY 03/03/19 Trazodone HCl [Desyrel] 150 mg PO PRN 03/03/19 - SOCIAL HX Smoking History: cigarettes, greater than 1 pack/day Alcohol Use: occasionally Drug Use: marijuana - FAMILY HX Family History: none - VITAL SIGNS Vital Signs: Vital Signs Temp Pulse Resp BP Pulse Ox 97.7 F 74 18 151/103 98 03/03/19 08:39 03/03/19 08:39 03/03/19 08:39 03/03/19 08:39 03/03/19 08:39 - REVIEWED ASSESSMENTS Nursing Assessment Reviewed: Yes Vitals Reviewed: Yes ED Results Lab/Radiology - Orders Orders: ED Orders Category Date Time Status CHEST 2VIEW [RAD] Stat Exams 03/03/19 Completed Ipratropium/Albuterol Sulfate [Duoneb] Med 03/03/19 08:44 Discontinued 3 ml NEB NOW ONE Losartan Potassium [Cozaar] Med 03/03/19 08:53 Discontinued 25 mg PO NOW ONE methylPREDNISolone SOD SUCC [SOLU-Medrol] Med 03/03/19 08:44 Discontinued 125 mg IM NOW ONE Upper Respiratory Symptoms - EXAM General Appearance: no acute distress, alert EENT: nml ENT inspection Neck: supple Respiratory: wheezes (scattered occasional bilaterally) Abdomen: non-tender, nml bowel sounds. No: tenderness CVS: reg rate & rhythm, heart sounds normal Skin: color nml, no rash, warm,dry Extremities: non-tender, no edema Neuro/Psych: oriented x3, neuro intact, mood/affect nml Discharge Clincal Impression: Acute exacerbation of chronic obstructive pulmonary disease (COPD) Prescriptions: Amoxicillin/Potassium Clav [Augmentin 875-125 Tablet] 1 each PO Q12 #14 tablet Losartan Potassium [Cozaar] 25 mg PO DAILY #30 tab Methylprednisolone [Medrol] 4 mg PO DIRECTED #1 tab.ds.pk Referrals: Jahaira Elizabeth, PRN [Primary Care Provider] - 2 Days Additional Instructions: 1. Start Augmentin antibiotic today. Take until gone 2. Start Medrol dose pack tomorrow 3. Start daily Losartan tomorrow. 4. Follow up with PCP within 1 week 5. Smoking cessation recommended 6. Return to ER for new or worsening symptoms Condition: Stable Disposition: 01 HOME, SELF-CARE Decision to Admit: NO Date of Decison to Admit: 03/03/19 Decision Time: 09:54
[2019-03-03] MEDS ORDERED: LOSARTAN POTASSIUM 50 MG TABLET PO ONE (08:53)
--- NOTE | 2019-03-03 09:16 | Diagnostic Imaging Report ---
PATIENT MR#: [id number] PATIENT PATIENT NAME: RUY ERICKSON DATE OF : 1980 REFERRING PHYSICIAN: Kristen Max EXAM DATE: 03/03/2019 ACCESSION NUMBER: [id number] EXAM DESCRIPTION: CHEST 2VIEW Chest two views History: 2 months of cough and shortness of breath. Smoker. Findings: Scattered calcified granulomas are present. The lungs are well expanded without infiltrat e or pleural effusion. Heart size and pulmonary vascularity are normal. Read by: Dr. Gavino Puga Transcribed by: Transcribed Date: Electronically signed by: Dr. Gavino Puga Date signed: 03/03/2019 9:15:47 AM
[2019-03-03 10:28] VITALS: BP 128/77
== END 2019-03-03 10:09 | disposition home or self-care (01) ==
LOC: ED 08:27
DX: J44.1 Chronic obstructive pulmonary disease with (acute) exacerbation (principal)
CPT/HCPCS: 71046; 94640; 96372; 99284; J2930

== ENCOUNTER 2019-03-03 20:29 | Emergency (ER) | payer SELFPAY ==
--- NOTE | 2019-03-03 20:39 | ED Physician Documentation ---
Chest Pain - HISTORIAN Historian: patient - HPI Stated Complaint: left chest pain Chief Complaint: Chest Pain Additional Information: Patient presents to ED with left sided chest pain radiating down his left arm. Patient states it is sharp stabbing, 10/10, worse with deep inspiration. He was seen earlier in the ER for cough x 2 months and treated with Solumedrol, Augmentin and Duoneb. Onset: hours (1) Timing: gradual onset Duration: constant Last known Well Date: 03/03/19 Last Known Well Time: 19:00 Context: other (deep breathing, cough) Severity: severe Quality: sharp, stabbing Chest Pain Radiation: arms Chest Pain Signs/Symptoms: denies: nausea, vomiting, diaphoresis Worsened By: deep breaths Relieved By: nothing - ROS CONST: denies: fever MS/LYMPH: denies: ankle swelling GI/: denies: vomiting, nausea EYES/ENT: none SKIN/ENDO: none NEURO/PSYCH: none - PAST HX [place] risk factors: hypertension, other (psych) DVT/PE Risk Factors: none TAD/AAA risk factors: none Neuro deficit: none GI disease: none Lung disease: COPD Surgeries/Procedures: none Allergies/Adverse Reactions: Allergies Allergy/AdvReac Type Severity Reaction Status Date / Time No Known Drug Allergies Allergy Verified 03/03/19 08:46 Home Medications: Ambulatory Orders Medication Instructions Recorded Gabapentin 600 mg PO QID u2 07/18/15 Amoxicillin/Potassium Clav 1 each PO Q12 #14 tablet 03/03/19 [Augmentin 875-125 Tablet] Buspirone HCl [Buspar] 15 mg PO BID 03/03/19 Losartan Potassium [Cozaar] 25 mg PO DAILY #30 tab 03/03/19 Methylprednisolone [Medrol] 4 mg PO DIRECTED #1 tab.ds.pk 03/03/19 Montelukast Sodium [Singulair] 10 mg PO HS #30 tablet 03/03/19 Oxcarbazepine [Trileptal] 1 tab PO DAILY 03/03/19 Trazodone HCl [Desyrel] 150 mg PO PRN 03/03/19 - SOCIAL HX Smoking History: cigarettes, greater than 1 pack/day Alcohol Use: occasionally Drug Use: marijuana - FAMILY HX Family HX: none - VITAL SIGNS Vital Signs: Vital Signs Temp Pulse Resp BP Pulse Ox 128/77 03/03/19 10:24 - REVIEWED ASSESSMENTS Nursing Assessment Reviewed: Yes Vitals Reviewed: Yes Progress - Progress Progress: 2233 Patient states he is feeling better, lateral rib pain resolved. He has not coughed the entire time he has been in the ED. 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 Smoker. Findings: Scattered calcified granulomas are present. The lungs are well expa nded without infiltrate or pleural effusion. Heart size and pulmonary vascularity are normal. Electronically signed on Mar 03, 2019 9:11:33 AM DATA REPORT ANALYST by: Omkar Puga - Orders Orders: ED Orders Category Date Time Status Continuous EKG monitoring Q30M Care 03/03/19 20:[address] IV Lock 1T Care 03/03/19 20:31 Ordered CBC/PLATELET/DIFF Routine Lab 03/03/19 Ordered CMP Routine Lab 03/03/19 Ordered Aspirin [Amanda] Med 03/03/19 20:30 Once 324 mg PO NOW ONE Ipratropium/Albuterol Sulfate [Duoneb] Med 03/03/19 20:31 Once 3 ml NEB NOW ONE EKG WITH COMPARISON Stat Ther 03/03/19 Ordered Chest Pain Physical Exam - EXAM General Appearance: no acute distress, mild distress, anxious EENT: DEINSSE Neck: No: lymphadenopathy Respiratory: no resp. distress, manifests distinct pain on movement (left anterolateral ribs) CVS: reg. rate & rhythm, no murmur Abdomen: soft, normal bowel sounds, no distension, non-tender Skin: warm/dry Extremities: non-tender, no evidence of injury, no edema Neuro: oriented X3, other (anxious, stuttering) Discharge Clincal Impression: Non-cardiac chest pain Prescriptions: Montelukast Sodium [Singulair] 10 mg PO HS #30 tablet Referrals: Jahaira Elizabeth, AZIZAN [Primary Care Provider] - 2 Days Additional Instructions: 1. Continue Antibiotic as previously prescribed 2. Start Medrol dose pack as previously prescribed 3. Resume home meds of Losartan and Singulair 4. Take daily Claritin, Xyzal, chlor tabs, or Zyrtec 5. Add benedryl at bedtime as needed for cough 6. Tylenol 650mg every 6 hours as needed for pain 7. Smoking cessation recommended to stop coughing fits 8. Follow up with PCP within 1 week 9. Return to ER for new or worsening symptoms Condition: Stable Disposition: 01 HOME, SELF-CARE Decision to Admit: NO Date of Decison to Admit: 03/03/19 Decision Time: 22:34
[2019-03-03] MEDS: ASPIRIN 81 MG CHEW TAB PO ONE (20:56)
[2019-03-03] MEDS: IPRATROPIUM/ALBUTEROL SULFATE 3 ML AMPUL.NEB NEB ONE (20:57)
[2019-03-03] MEDS: HYDROcodone /APAP 5/325 1 EACH TABLET PO ONE (21:08)
[2019-03-03] MEDS: ALPRAZolam 0.5 MG TABLET PO ONE (21:08)
[2019-03-03 21:14] LABS: eGFR (Non-African) > 60
[2019-03-03 22:56] VITALS: BP 133/76
[2019-03-04 08:50] LABS: BASOPHILS % 0.4 % (0.0-1.5); NEUTROPHILS # 12.2 # k/uL (1.4-7.7)
[2019-03-04 08:51] LABS: ANISOCYTOSIS 1+ (NEGATIVE); SEGMENTED NEUTROPHILS % 92 % (39-79)
== END 2019-03-03 22:45 | disposition home or self-care (01) ==
LOC: ED 20:29
DX: R07.89 Other chest pain (principal)
CPT/HCPCS: 80053; 84484; 85025; 93005; 94640; 99283; 99284; A9270; S1016